=== PATIENT | male | born 1995 | race Two or more races ===

== ENCOUNTER 2021-05-14 00:11 | Emergency (ER) | payer OTHER ==
[~2021-05-14] VITALS: Ht 165.1 cm; Wt 82.0 kg
[2021-05-14 01:16] VITALS: BP 139/74
[2021-05-14] MEDS ORDERED: IBUPROFEN 600MG TABLET PO ONE (02:00)
[2021-05-14] MEDS ORDERED: IBUP-2028 MT (02:02)
== END 2021-05-14 03:20 | disposition home or self-care (01) ==
LOC: ER 00:11
DX: R68.84 Jaw pain (principal)
CPT/HCPCS: 99282